=== PATIENT | female | born 1940 | race Native Hawaiian/Other Pacific Islander ===

== ENCOUNTER 2016-06-12 08:35 | Inpatient (IN) | payer OTHER ==
[~2016-06-12 08:35] MED LIST: ALBUSOL IN; AMLO2.5T PO; CADUET10 MG/10 M OR; CIPR500T PO; DICL1GEL2 TOP; DIOVAN HC1 PO; ELIQUIS5 MG PO; FLONASE0.05 %; FLUT0.05 NAS; FURO40TA93 PO; GABA100C2 PO; GLIM2TAB PO; HYDR25TA60 PO; HYDR5TAB9 PO; HYDROCHLOROT12.5 M1 PO; INSU100P SC; INSUINJP SC; KLOR-CON M2020 MEQ OR; LEVO0.0218 PO; LEVO0.0529 PO; LEVO0.117 PO; LISI10TA11 PO; LOSA50TA PO; METF100038 OR; METFTAB PO; METO50TA27 PO; METOPROLOL25 M1 OR; MUCINEX600 MG OR; MULT VITAMI1 PO; PACERONE200 MG OR; PLAVIX75 MG PO; ROBITUSS10 PO; ROBITUSSI2 PO; SIMV20TA2 PO; SINGULAIR10 MG OR; SPIRONOLACT25 MG PO; TIROSINT88 MCG OR
[2016-07-02] MEDS ORDERED: FERROUS SULF325 M1 OR (10:11)
[2016-07-02] MEDS ORDERED: FURO40TA93 PO (10:14)
[2016-07-02] MEDS ORDERED: LEVO500T PO (10:15)
[2016-07-02] MEDS ORDERED: CEFU250T2 PO (10:15)
[2016-07-02] MEDS ORDERED: ALBUSOL IN (10:17)
[2016-07-09 06:10] LABS: PLATELET COUNT 305 K/uL (152-353)
[2016-07-09 07:05] LABS: POTASSIUM 5.6 mmol/L (3.6-5.2)
[2016-07-13 10:47] LABS: POTASSIUM 5.8 mmol/L (3.6-5.2)
[2016-07-13 11:05] LABS: PLATELET COUNT 257 K/uL (152-353)
== END 2016-07-13 08:00 | disposition still patient (30) ==
LOC: PAVA 08:35
PROVIDERS: ADMIT Internal Medicine
DX: Z51.89 Encounter for other specified aftercare (principal)
CPT/HCPCS: 36415; 80048; 80053; 83880; 85027

== ENCOUNTER 2016-07-13 09:00 | Inpatient (IN) | payer OTHER ==
[~2016-07-13 09:00] MED LIST changes: +CEFU250T2 PO; +FERROUS SULF325 M1 OR; +LEVO500T PO
== END 2016-08-13 08:36 | disposition still patient (30) ==
LOC: PAVA 09:00
PROVIDERS: ADMIT Internal Medicine
DX: J18.9 Pneumonia, unspecified organism (principal); M62.81 Muscle weakness (generalized); R26.81 Unsteadiness on feet
CPT/HCPCS: 36415; 80053; 82607; 83880; 85027

== ENCOUNTER 2016-07-25 11:23 | Outpatient (CLI) | payer OTHER ==
[2016-07-25 11:51] LABS: POTASSIUM 4.5 mmol/L (3.6-5.2)
== END 2016-07-25 21:43 | disposition home or self-care (01) ==
LOC: LAB 11:23
PROVIDERS: Internal Medicine
DX: I48.91 Unspecified atrial fibrillation (principal); R25.2 Cramp and spasm; Z51.81 Encounter for therapeutic drug level monitoring
CPT/HCPCS: 80048

== ENCOUNTER 2016-08-13 09:11 | Inpatient (IN) | payer OTHER | END 2016-09-10 08:17 | disposition still patient (30) | LOC: PAVA 09:11 | PROVIDERS: ADMIT Internal Medicine | DX: Z51.89 Encounter for other specified aftercare (principal) ==

== ENCOUNTER 2016-09-10 08:32 | Inpatient (IN) | payer OTHER ==
[2016-10-06] MEDS ORDERED: SPIR50TA8 PO (12:40)
[2016-10-06] MEDS ORDERED: INSUINJ20 SC (12:42)
== END 2016-10-11 08:02 | disposition still patient (30) ==
LOC: PAVA 08:32
PROVIDERS: ADMIT Internal Medicine
DX: Z51.89 Encounter for other specified aftercare (principal)

== ENCOUNTER 2016-09-15 01:55 | Outpatient (CLI) | payer OTHER ==
[2016-09-15 02:27] LABS: PLATELET COUNT 275 K/uL (152-353)
[2016-09-15 02:55] LABS: POTASSIUM 4.2 mmol/L (3.6-5.2)
== END 2016-09-15 19:30 | disposition home or self-care (01) ==
LOC: LAB 01:55
PROVIDERS: Internal Medicine
DX: Z79.01 Long term (current) use of anticoagulants (principal); I48.2 Chronic atrial fibrillation; E11.9 Type 2 diabetes mellitus without complications; Z51.81 Encounter for therapeutic drug level monitoring
CPT/HCPCS: 36415; 80053; 80061; 83036; 84443; 85027

== ENCOUNTER 2016-10-03 13:39 | Outpatient (CLI) | payer OTHER ==
[2016-10-03 13:56] LABS: PLATELET COUNT 297 K/uL (152-353)
[2016-10-03 14:27] LABS: POTASSIUM 4.5 mmol/L (3.6-5.2)
== END 2016-10-03 21:41 | disposition home or self-care (01) ==
LOC: LAB 13:39
PROVIDERS: Internal Medicine
DX: R06.02 Shortness of breath (principal); I50.9 Heart failure, unspecified
CPT/HCPCS: 80048; 83880; 85027

== ENCOUNTER 2016-10-05 02:42 | Inpatient (IN) | payer OTHER ==
[2016-10-05] VITALS (16 sets, daily range): BP systolic 99–126; BP diastolic 45–85; TEMP 98.1–99.5; Ht 172.7 cm; Wt 100.3 kg
[~2016-10-05] VITALS: Ht 172.7 cm; Wt 100.3 kg
[2016-10-05 09:05] LABS: PLATELET COUNT 248 K/uL (152-353)
[2016-10-05 09:23] LABS: POTASSIUM 5.6 mmol/L (3.6-5.2)
[2016-10-06] VITALS (21 sets, daily range): BP systolic 100–143; BP diastolic 46–69; TEMP 98.1–99
[2016-10-06 08:42] LABS: PLATELET COUNT 211 K/uL (152-353)
[2016-10-06 08:45] LABS: POTASSIUM 4.3 mmol/L (3.6-5.2)
[2016-10-06] MEDS ORDERED: SPIR50TA8 PO (12:40)
[2016-10-06] MEDS ORDERED: INSUINJ20 SC (12:42)
[2016-10-07] VITALS (15 sets, daily range): BP systolic 115–145; BP diastolic 52–69; TEMP 98.2–98.6
[2016-10-07 04:20] LABS: PLATELET COUNT 227 K/uL (152-353)
[2016-10-07 04:45] LABS: POTASSIUM 4.6 mmol/L (3.6-5.2)
[2016-10-07 04:48] LABS: PARTIAL THROMBOPLASTIN TIME 28.1 SECONDS (24.5-33.6)
[2016-10-08] VITALS (12 sets, daily range): BP systolic 90–127; BP diastolic 44–66; TEMP 95–100
[2016-10-08 00:50] LABS: PARTIAL THROMBOPLASTIN TIME 30.8 SECONDS (24.5-33.6)
[2016-10-08 07:22] LABS: PLATELET COUNT 263 K/uL (152-353)
[2016-10-08 07:46] LABS: PARTIAL THROMBOPLASTIN TIME 29.2 SECONDS (24.5-33.6)
[2016-10-08 07:48] LABS: POTASSIUM 4.3 mmol/L (3.6-5.2)
[2016-10-09] VITALS (10 sets, daily range): BP systolic 80–126; BP diastolic 40–89; TEMP 97–98.6
[2016-10-09 08:38] LABS: PLATELET COUNT 233 K/uL (152-353)
[2016-10-09 09:04] LABS: POTASSIUM 4.7 mmol/L (3.6-5.2)
[2016-10-10] VITALS (24 sets, daily range): BP systolic 83–122; BP diastolic 27–97; TEMP 97–99.5
[2016-10-10 06:18] LABS: POTASSIUM 5.2 mmol/L (3.6-5.2)
[2016-10-10 07:21] LABS: PLATELET COUNT 294 K/uL (152-353)
[2016-10-10 14:44] LABS: PARTIAL THROMBOPLASTIN TIME 24.1 SECONDS (24.5-33.6)
[2016-10-11] VITALS (24 sets, daily range): BP systolic 83–127; BP diastolic 40–70; TEMP 98–99.1
[2016-10-11 04:47] LABS: PLATELET COUNT 247 K/uL (152-353)
[2016-10-11 04:57] LABS: POTASSIUM 4.3 mmol/L (3.6-5.2)
[2016-10-12] VITALS (28 sets, daily range): BP systolic 71–112; BP diastolic 37–80; TEMP 97.6–99.3
[2016-10-12 04:11] LABS: PLATELET COUNT 248 K/uL (152-353)
[2016-10-12 04:41] LABS: POTASSIUM 3.6 mmol/L (3.6-5.2)
[2016-10-13] VITALS (27 sets, daily range): BP systolic 78–114; BP diastolic 40–64; TEMP 97–97.7
[2016-10-13 05:45] LABS: PLATELET COUNT 249 K/uL (152-353)
[2016-10-13 05:56] LABS: POTASSIUM 4.6 mmol/L (3.6-5.2)
[2016-10-13 13:15] LABS: PARTIAL THROMBOPLASTIN TIME 26.3 SECONDS (24.5-33.6)
[2016-10-14] VITALS (23 sets, daily range): BP systolic 80–110; BP diastolic 35–68; TEMP 97–97.8
[2016-10-14 07:00] LABS: PLATELET COUNT 270 K/uL (152-353)
[2016-10-15] VITALS (15 sets, daily range): BP systolic 89–112; BP diastolic 31–72; TEMP 97–98
[2016-10-15 08:02] LABS: POTASSIUM 5.3 mmol/L (3.6-5.2)
[2016-10-15 08:54] LABS: PLATELET COUNT 290 K/uL (152-353)
== END 2016-10-15 19:10 | DRG 208 ==
LOC: RAD 02:42 → ICU 06:55
PROVIDERS: Emergency Medicine; Internal Medicine
PROC: 5A1945Z Respiratory Ventilation, 24-96 Consecutive Hours (ICD-10-PCS; principal; 2016-10-09)
PROC: 0BH17EZ Insertion of Endotracheal Airway into Trachea, Via Natural or Artificial Opening (ICD-10-PCS; 2016-10-09)
DX: J18.8 Other pneumonia, unspecified organism (principal); I21.4 Non-ST elevation (NSTEMI) myocardial infarction; J96.02 Acute respiratory failure with hypercapnia; N39.0 Urinary tract infection, site not specified; N17.8 Other acute kidney failure; I12.9 Hypertensive chronic kidney disease with stage 1 through stage 4 chronic kidney disease, or unspecified chronic kidney disease; N18.3 Chronic kidney disease, stage 3 (moderate); E11.9 Type 2 diabetes mellitus without complications; E87.5 Hyperkalemia; I48.91 Unspecified atrial fibrillation; D64.89 Other specified anemias; I51.7 Cardiomegaly; I50.9 Heart failure, unspecified; R06.02 Shortness of breath; R50.9 Fever, unspecified
CPT/HCPCS: 36415; 36430; 36591; 36600; 80048; 80053; 80202; 81000; 82272; 82550; 82553; 82570; 82607; 82805; 82947; 82948; 82962; 83605; 83735; 83880; 84300; 84484; 84540; 85027; 85379; 85610; 85730; 87040; 87070; 87205; 87804; 93005; 94002; 94003; 94640; 94664; 94760; 96372; C1768; J0456; J0696; J1644; J1940; J1956; J2060; J2270; J2704; J3420; J3490; J7060

== ENCOUNTER 2016-10-11 09:48 | Inpatient (IN) | payer OTHER ==
[~2016-10-11 09:48] MED LIST changes: +INSUINJ20 SC; +SPIR50TA8 PO
== END 2016-10-15 19:00 | disposition expired ==
LOC: PAVA 09:48
PROVIDERS: ADMIT Internal Medicine
DX: Z51.89 Encounter for other specified aftercare (principal)